=== PATIENT | female | born 1955 | race Two or more races ===

== ENCOUNTER 2016-07-16 11:25 | Emergency (ER) | payer SELFPAY ==
[~2016-07-16] VITALS: Ht 157.5 cm; Wt 72.6 kg
[2016-07-16] MEDS ORDERED: SODIUM BICARBONATE 8.4% INJ 50ML SYRINGE IV ONE (14:01)
[2016-07-16] MEDS ORDERED: EPINEPHrine HCL 1 MG/10 ML SYRG IV ONE (14:01)
== END 2016-07-16 16:36 | disposition expired ==
LOC: ER 11:25
DX: I46.9 Cardiac arrest, cause unspecified (principal); N18.9 Chronic kidney disease, unspecified
CPT/HCPCS: 92950; 99285; J0171